=== PATIENT | male | born 2000 | race Two or more races ===

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

== ENCOUNTER 2024-04-24 23:43 | Emergency (ER) | payer OTHER ==
[~2024-04-24] VITALS: Ht 177.8 cm; Wt 102.5 kg
[2024-04-25] MEDS ORDERED: OxyCODONE HCL/APAP UD (PERCOCET) PO STA (01:22)
== END 2024-04-25 02:39 | disposition home or self-care (01) ==
LOC: ER 23:45
DX: S52.501A Unspecified fracture of the lower end of right radius, initial encounter for closed fracture (principal); S50.11XA Contusion of right forearm, initial encounter; W19.XXXA Unspecified fall, initial encounter; Y93.67 Activity, basketball; Y92.89 Other specified places as the place of occurrence of the external cause; Y99.8 Other external cause status; Z88.6 Allergy status to analgesic agent